=== PATIENT | male | born 1975 | race African-American/Black ===

== ENCOUNTER 2024-04-27 20:24 | Emergency (ER) | payer SELFPAY ==
[~2024-04-27] VITALS: Ht 182.9 cm; Wt 103.0 kg
[2024-04-27 21:20] VITALS: O2SAT 98
[2024-04-27] MEDS ORDERED: SILV20CR13 TP (23:20)
[2024-04-27] MEDS: TETANUS, DIPHTHERIA, PERTUSSIS VAC/PF 0.5ML (>10YR OLD) IM ONE (23:30)
[2024-04-28] MEDS: SILVER SULFADIAZINE 1% CREAM 25GM TOP ONE (00:24)
[2024-04-28 00:35] VITALS: BP 159/86; PULSE 79; RESP 20; TEMP 37.05852; O2SAT 100
== END 2024-04-28 00:25 | disposition home or self-care (01) ==
LOC: ER 20:24
DX: T23.201A Burn of second degree of right hand, unspecified site, initial encounter (principal); T31.0 Burns involving less than 10% of body surface; T79.9XXA Unspecified early complication of trauma, initial encounter; X08.8XXA Exposure to other specified smoke, fire and flames, initial encounter; Y93.89 Activity, other specified; Y92.89 Other specified places as the place of occurrence of the external cause; Y99.8 Other external cause status
CPT/HCPCS: 16000; 90471; 90715; 99283